=== PATIENT | male | born 1980 | race Two or more races ===

== ENCOUNTER 2016-08-14 09:31 | Emergency (ER) | payer MEDICAID ==
[~2016-08-14] VITALS: Ht 165.1 cm; Wt 74.8 kg
[2016-08-14] MEDS ORDERED: NKM (09:45)
[2016-08-14 09:49] VITALS: BP 158/81
[2016-08-14] MEDS ORDERED: NS 1000ml 2,200 ML IVLG ONE (10:00)
[2016-08-14] MEDS ORDERED: Famotidine 20 MG/ 2ML VIAL IVP ONE (10:00)
[2016-08-14] MEDS ORDERED: Morphine Sulfate 2mg/ml Inj IVP ONE (10:00)
[2016-08-14 10:28] LABS: APPEARANCE,URINE CLEAR; BASOPHILS % (AUTO) 0.2 % (0.0-2.0); EOSINOPHILS % (AUTO) 0.4 % (0.0-3.0); KETONES,URINE NEGATIVE (NEGATIVE); LEUKOCYTE ESTERASE ,URINE 1+ (NEGATIVE); LYMPHOCYTES % (AUTO) 8.7 % (20.0-45.0); MEAN CORPUSCULAR HGB CONC 33.9 G/DL (32.0-36.0); MEAN CORPUSCULAR VOLUME 86 FL (80-99); MEAN PLATELET VOLUME 11.9 FL (6.5-10.1); MONOCYTES % (AUTO) 7.4 % (1.0-10.0); NEUTROPHILS % (AUTO) 83.2 % (45.0-75.0); NITRITE,URINE NEGATIVE (NEGATIVE); PH,URINE 5 (4.5-8.0); PLATELET COUNT 135 K/UL (150-450); PROTEIN,URINE 1+ (NEGATIVE); RED BLOOD COUNT 6.06 M/UL (4.70-6.10); RED CELL DISTRIBUTION WIDTH 12.2 % (11.6-14.8); UROBILINOGEN,URINE NORMAL MG/DL (0.0-1.0); WHITE BLOOD COUNT 10.5 K/UL (4.8-10.8)
[2016-08-14 10:35] LABS: PROTHROMBIN TIME 10.6 SEC (9.30-11.50)
[2016-08-14 10:48] LABS: ALANINE AMINOTRANSFERASE 43 U/L (3-41); ALBUMIN/GLOBULIN RATIO 1.4 (1.0-2.7); ANION GAP 16 (5-15); ASPARTATE AMINO TRANSFERASE 35 U/L (5-40); CALCIUM 8.7 mg/dL (8.6-10.2); CARBON DIOXIDE 24 mEQ/L (20-30); CHLORIDE 98 mEQ/L (98-107); CREATININE 0.8 mg/dL (0.7-1.2); GLOMERULAR FILTRATION RATE > 60 mL/min (>60); HEMOLYSIS 5; LIPASE 21 U/L (< 60); POTASSIUM 3.7 mEQ/L (3.4-4.9); SODIUM 138 mEQ/L (135-145); TOTAL PROTEIN 7.6 g/dL (6.6-8.7)
[2016-08-14 11:00] LABS: BACTERIA,URINE FEW /HPF; MUCUS,URINE MODERATE /LPF (NONE/OCC); SQUAMOUS EPITHELIAL CELL,UR OCCASIONAL /LPF (NONE/OCC)
--- NOTE | 2016-08-14 11:12 | Diagnostic Imaging Report ---
Indication: Abdominal pain. Constipated Technique: Supine view of the abdomen Comparison: none Findings: Bowel gas pattern is unremarkable. No unusual masses or calcifications. No significant fecal retention is demonstrated Impression: No acute process
[2016-08-14 11:53] VITALS: BP 119/67
[2016-08-14] MEDS ORDERED: LOMOTIL TABLET1 EAC1 PO (14:02)
[2016-08-14] MEDS ORDERED: CIPROFLOXACIN500 M2 ORAL (14:02)
[2016-08-14 14:05] VITALS: BP 111/63
--- NOTE | 2016-08-15 01:16 | Emergency Room Report ---
History of Present Illness General Chief Complaint: Diarrhea Source: Patient Present Illness HPI Patient with 2 days of diarrhea. Began yesterday with some nausea and vomiting. Feels dizzy with standing. Also had chills last night. Tool peptobismol and states stools have been dark. Some diffuse crampy pain. No epigastric tenderness. No vomit blood. Denies alcohol. Pain reported 6/10, not radiate, intermittent. 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 No unusual foods. Darker urine, no dysuria. No URI sy, chest pain. Allergies: Coded Allergies: No Known Allergies (Unverified , 08/14/16) Patient History Past Medical History: see triage record Social History: Denies: smoking Social History Narrative works in kitchen Reviewed Nursing Documentation: PMH: Agreed, PSxH: Agreed Nursing Documentation-PMH Past Medical History: No Stated History Review of Systems All Other Systems: negative except mentioned in HPI Physical Exam Vital Signs Date Time Temp Pulse Resp B/P Pulse Ox O2 Delivery O2 Flow Rate FiO2 08/14/16 09:40 98.8 123 18 158/81 96 Room Air Sp02 EP Interpretation: reviewed, normal General Appearance: well appearing, no apparent distress, GCS 15 Head: normocephalic, atraumatic Eyes: bilateral eye PERRL, bilateral eye normal inspection ENT: moist mucus membranes Neck: supple Respiratory: lungs clear, normal breath sounds Cardiovascular #1: regular rate, rhythm Cardiovascular #2: 2+ radial (R) Gastrointestinal: normal inspection, no mass, non-distended, no guarding, no rebound, abnormal bowel sounds - hyperactive, tenderness - diffuse Rectal: heme positive stool - liquid, brown Musculoskeletal: back normal, gait/station normal, normal range of motion Neurologic: alert, oriented x3, grossly normal Skin: normal inspection, warm/dry Medical Decision Making Diagnostic Impression: Primary Impression: Diarrhea Qualified Codes: A09 - Infectious gastroenteritis and colitis, unspecified ER Course Patient with 2 days of GI sy. Ddx; gastroenteritis, dehydration, food poisoning , infectious diarrhea. Tachycardic. Labs including stool sent. Aggressive hydration. Analgesia. Heme + stool. Start cipro. No smell of C diff or prior antibiotic use. H/H prob hemoconcentrated. Improved with treatment. Tolerating PO. WBC negative, however, these results questioned in light of stool characteristics. Improved. Patient stable for outpatient observation and treatment Laboratory Tests Test 08/14/16 10:05 08/14/16 10:21 08/14/16 11:05 White Blood Count 10.5 K/UL (4.8-10.8) Red Blood Count 6.06 M/UL (4.70-6.10) Hemoglobin 17.6 G/DL (14.2-18.0) Hematocrit 51.9 % (42.0-52.0) Mean Corpuscular Volume 86 FL (80-99) Mean Corpuscular Hemoglobin 29.0 PG (27.0-31.0) Mean Corpuscular Hemoglobin Concent 33.9 G/DL (32.0-36.0) Red Cell Distribution Width 12.2 % (11.6-14.8) Platelet Count 135 K/UL (150-450) L Mean Platelet Volume 11.9 FL (6.5-10.1) H Neutrophils (%) (Auto) 83.2 % (45.0-75.0) H Lymphocytes (%) (Auto) 8.7 % (20.0-45.0) L Monocytes (%) (Auto) 7.4 % (1.0-10.0) Eosinophils (%) (Auto) 0.4 % (0.0-3.0) Basophils (%) (Auto) 0.2 % (0.0-2.0) Prothrombin Time 10.6 SEC (9.30-11.50) Prothrombin Time INR 1.0 (0.9-1.1) PTT 30 SEC (23-33) Urine Color Yellow Urine Appearance Clear Urine pH 5 (4.5-8.0) Urine Specific Trail 1.025 (1.005-1.035) Urine Protein 1+ (NEGATIVE) H Urine Glucose (UA) Negative (NEGATIVE) Urine Ketones Negative (NEGATIVE) Urine Occult Blood 2+ (NEGATIVE) H Urine Nitrite Negative (NEGATIVE) Urine Bilirubin Negative (NEGATIVE) Urine Urobilinogen Normal MG/DL (0.0-1.0) Urine Leukocyte Esterase 1+ (NEGATIVE) H Urine RBC 2-4 /HPF (0 - 0) H Urine WBC 2-4 /HPF (0 - 0) Urine Squamous Epithelial Cells Occasional /LPF Urine Bacteria Few /HPF (NONE) Urine Mucus Moderate /LPF (NONE/OCC) H Sodium Level 138 mEQ/L (135-145) Potassium Level 3.7 mEQ/L (3.4-4.9) Chloride Level 98 mEQ/L (98-107) Carbon Dioxide Level 24 mEQ/L (20-30) Anion Gap 16 (5-15) H Blood Urea Nitrogen 20 mg/dL (7-23) Creatinine 0.8 mg/dL (0.7-1.2) Estimate Glomerular Filtration Rate > 60 mL/min (>60) Glucose Level 149 mg/dL (74-106) H Calcium Level 8.7 mg/dL (8.6-10.2) Total Bilirubin 0.6 mg/dL (0.0-1.2) Aspartate Amino Transferase (AST) 35 U/L (5-40) Alanine Aminotransferase (ALT) 43 U/L (3-41) H Alkaline Phosphatase 81 U/L (40-129) Total Creatine Kinase 89 U/L (38-174) Total Protein 7.6 g/dL (6.6-8.7) Albumin 4.5 g/dL (3.5-5.2) Globulin 3.1 g/dL Albumin/Globulin Ratio 1.4 (1.0-2.7) Lipase 21 U/L (< 60) Stool Occult Blood Positive (NEGATIVE) Lactic Acid Level 1.30 mmol/L (0.66-2.22) Microbiology Date/Time Source Procedure Growth Status 08/14/16 10:21 Anus WBC Smear - Final Complete Other X-Ray Diagnostic Results Other X-Ray Diagnostic Results : X-Ray Ordered: abd EP Interpretation: Yes Findings: other - NSBGP, no SBO, masses Number of Views: 1 Last Vital Signs Date Time Temp Pulse Resp B/P Pulse Ox O2 Delivery O2 Flow Rate FiO2 08/14/16 14:05 98.8 86 18 111/63 100 Room Air Status: improved Disposition: HOME, SELF-CARE Condition: Improved Scripts Diphenoxylate HCl/Atropine (Lomotil Tablet) 1 Each Tablet 1 EACH PO BID Y for diarrhea or cramps, #8 TAB Prov: Zack Mancilla M.D. 08/14/16 Ciprofloxacin Hcl* (CIPROFLOXACIN HCL*) 500 Mg Tablet 500 MG ORAL Q12H, #10 TAB 0 Refills Prov: Zack Mancilla M.D. 08/14/16 Departure Forms: Return to Work Return to Work in (Days): 3 Work Restrictions: None Patient Instructions: Diarrhea, Adult Additional Instructions: Puede chantel tylenol o advil para fivre o dolor. Regrese si no reineira justino. Zack Mancilla M.D. August 15, 2016 01:16
== END 2016-08-14 14:12 | disposition home or self-care (01) ==
LOC: EMR 10:08
DX: R19.7 Diarrhea, unspecified (principal); R19.5 Other fecal abnormalities; R11.2 Nausea with vomiting, unspecified
CPT/HCPCS: 36415; 74000; 80053; 81003; 82270; 82550; 83605; 83690; 85025; 85610; 85730; 87045; 87205; 96360; 99284; J0744; J2270; J2405; S0028